=== PATIENT | female | born 2005 ===

== ENCOUNTER 2023-12-30 19:03 | Emergency (ER) | payer OTHER ==
[~2023-12-30] VITALS: Ht 165.1 cm; Wt 59.0 kg
[2023-12-30 19:14] VITALS: BP 121/63; PULSE 80; RESP 16; TEMP 98.3
[2023-12-30] MEDS ORDERED: FERR325T23 PO (19:15)
[2023-12-30] MEDS ORDERED: ACET-2247 PO (22:36)
[2023-12-30] MEDS ORDERED: AMOX1TAB16 PO (22:36)
[2023-12-30] MEDS: AMOX TR/POT CLAV 875 MG/125 MG TABLET PO ONE (22:38)
[2023-12-30] MEDS: ACETAMINOPHEN 325 MG TABLET PO ONE (22:38)
[2023-12-30] MEDS: BACITRACIN 0.9 GM PACKET OINTMENT TP ONE (22:39)
[2023-12-30] MEDS: PERTUSS(ACELL),DIPH,TET/PF 0.5 ML SYRINGE [ADULT] IM. ONE (22:40)
== END 2023-12-30 23:01 | disposition home or self-care (01) ==
LOC: EMS 19:03
DX: S41.152A Open bite of left upper arm, initial encounter (principal); W54.0XXA Bitten by dog, initial encounter; Y93.89 Activity, other specified; Y92.89 Other specified places as the place of occurrence of the external cause; Y99.8 Other external cause status
CPT/HCPCS: 90471; 90715; 99284